=== PATIENT | male | born 1995 | race Two or more races ===

== ENCOUNTER → 2017-11-12 | Outpatient (REF) | payer OTHER | LOC: M SFHCLERA 17:42 | DX: J02.9 Acute pharyngitis, unspecified (principal) ==

== ENCOUNTER 2018-01-06 09:21 | Day surgery (SDC) | payer OTHER ==
[~2018-01-06 09:21] MED LIST: MIDAZOLAM INJ 2 MG/2 ML VIAL (J2250) As Ordered; PROPOFOL 200 MG/20 ML VIAL As Ordered; fentaNYL 100 MCG/2 ML INJECTION (J3010) As Ordered
[2018-01-06] MEDS ORDERED: ceFAZolin 2 GM/D5W 50 ML IV BAG (J0690 PER 500MG) As Ordered (09:37)
[2018-01-06] MEDS: LR 1,000 ML IV (09:40)
[2018-01-06] MEDS ORDERED: GLYCOPYRROLATE INJ 0.2 MG/ML 2 ML VIAL As Ordered (10:17)
[2018-01-06] MEDS: BUPIVACAINE HCL 0.5% 30 ML VIAL As Ordered (10:19)
[2018-01-06] MEDS ORDERED: KETOROLAC 60 MG/2 ML VIAL (J1885) As Ordered (10:34)
[2018-01-06] MEDS ORDERED: ONDANSETRON 4MG/2ML VIAL (J2405) As Ordered (10:34)
[2018-01-06] MEDS ORDERED: ONDANSETRON 4MG/2ML VIAL (J2405) IV (11:45)
[2018-01-06] MEDS ORDERED: oxyCODONE 5MG TAB PO ×2 (11:45)
[2018-01-06] MEDS ORDERED: LR 1,000 ML IV ×2 (11:45)
[2018-01-06] MEDS ORDERED: PERCOCET 5MG/325MG TAB PO (11:45)
[2018-01-06] MEDS ORDERED: fentaNYL 100 MCG/2 ML INJECTION (J3010) IV (11:45)
== END 2018-01-06 12:37 | disposition home or self-care (01) ==
LOC: M SDC 12:37
DX: S92.355K Nondisplaced fracture of fifth metatarsal bone, left foot, subsequent encounter for fracture with nonunion (principal); X58.XXXA Exposure to other specified factors, initial encounter; Y93.89 Activity, other specified; Y92.89 Other specified places as the place of occurrence of the external cause; Y99.8 Other external cause status
CPT/HCPCS: 28126

== ENCOUNTER → 2018-01-06 | Outpatient (CLI) | payer OTHER | LOC: M RAD 08:22 | DX: Z01.818 Encounter for other preprocedural examination (principal); R93.7 Abnormal findings on diagnostic imaging of other parts of musculoskeletal system | CPT/HCPCS: 73630 ==

== ENCOUNTER → 2019-03-13 | Outpatient (CLI) | payer OTHER ==
--- NOTE | 2019-03-13 15:44 | REP ---
MRI left knee without contrast: History: Left knee pain. Question ACL tear or meniscal tear. No comparison imaging. Injury stepping into a hole February 12, 2019. The patient reports previous surgery in 2014. Technique: Axial, coronal and sagittal imaging planes are utilized for T1, proton density and T2-weighted scans obtained with and without fat saturation. MRI findings: There is a small Renee's cyst in the posteromedial popliteal soft tissues. A small quantity of joint effusion is visible as well. There is a subtle area of subcortical marrow edema in the medial femoral condyle. The overlying articular cartilage shows a linear articular cartilage disruption and a lens shaped nondisplaced defect is suspected consistent with early OCD lesion. This articular cartilage lesion measures 7 mm in medial to lateral span by 6 mm anterior to posteriorly. No other articular cartilage lesion is appreciated. There is no visible medial or lateral meniscal tear. There is no evidence of medial or lateral collateral ligament disruption. Anterior and posterior cruciate ligaments have an intact appearance. Patellar and quadriceps tendons are intact. There is prepatellar soft tissue edema consistent with prepatellar tendonitis. Study is otherwise unremarkable. 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 Minimal underlying marrow edema. No evidence to suggest instability by MRI. Small Renee's cyst. Prepatellar tendon soft tissue edema consistent with tendonitis. Electronically Signed by Rolan Marcano MD 03/13/2019 04:04 P
== END ==
LOC: M RAD 13:33
PROVIDERS: ATTEND Physician Assistant
DX: M25.562 Pain in left knee (principal); M71.22 Synovial cyst of popliteal space [Baker], left knee; M25.462 Effusion, left knee